=== PATIENT | male | born 1995 | race Two or more races ===

== ENCOUNTER 2023-09-06 16:15 | Inpatient (IN) | payer OTHER ==
[2023-09-06 17:41] VITALS: BMI 22.2
[2023-09-06] MEDS ORDERED: DICYCLOMINE HCL 10 MG CAPSULE PO PRN (19:04)
[2023-09-06] MEDS ORDERED: MAG HYDROX/AL HYDROX/SIMETH 30 ML UNIT-DOSE CUP PO PRN (19:04)
[2023-09-06] MEDS ORDERED: BENZOCAINE/MENTHOL (CHLORASEPTIC ) LOZENGE MM PRN (19:04)
[2023-09-06] MEDS ORDERED: LOPERAMIDE HCL 2 MG CAPSULE PO PRN (19:04)
[2023-09-06] MEDS ORDERED: ACETAMINOPHEN 325 MG TABLET (FP) PO PRN (19:04)
[2023-09-06] MEDS ORDERED: ONDANSETRON *ODT* 4 MG TABLET SL PRN (19:04)
[2023-09-06] MEDS ORDERED: POLYETHYLENE GLYCOL (HEALTHYLAX) 3350 17 GM PACKET PO PRN (19:04)
[2023-09-06] MEDS ORDERED: MAGNESIUM HYDROX 2400MG/30ML ORAL SUSPENSION 30 ML CUP PO PRN (19:04)
[2023-09-06] MEDS ORDERED: IBUPROFEN 600 MG TABLET (FP) PO PRN (19:04)
[2023-09-06] MEDS ORDERED: NICOTINE POLACRILEX 2 MG GUM BUC PRN (19:04)
[2023-09-06] MEDS ORDERED: IBUPROFEN 400 MG TABLET (FP) PO PRN (19:04)
[2023-09-06] MEDS ORDERED: BISMUTH SUBSALICYLATE 524 MG/30 ML PO PRN (19:04)
[2023-09-06] MEDS ORDERED: hydrOXYzine PAMOATE 25 MG CAPSULE (FP) PO PRN (19:04)
[2023-09-06] MEDS ORDERED: NICOTINE POLACRILEX 2 MG LOZENGE BC PRN (19:04)
[2023-09-06] MEDS ORDERED: guaiFENesin 600 MG TABLET.ER (FP) PO PRN (19:04)
[2023-09-06] MEDS ORDERED: BENZONATATE 200 MG CAPSULE PO PRN (19:04)
[2023-09-06] MEDS: THIAMINE 100 MG TABLET PO SCH (22:22)
[2023-09-06] MEDS: MELATONIN 5 MG TABLETS PO SCH (22:22)
[2023-09-07] MEDS: PRENATAL VITAMINS W/ FOLIC ACID TABLET (FP) PO SCH (10:19)
[2023-09-07 13:22] LABS: POTASSIUM 4.4 mmol/L (3.5-5.1)
[2023-09-07 13:27] LABS: HEMATOCRIT 43.5 % (35.4-49); HEMOGLOBIN 14.9 GM/dL (11.7-16.9); MCH 30.8 pg (25.7-33.7); MCHC 34.2 g/dl (32.0-35.9); MEAN CELL VOLUME 89.9 fl (80-96); MEAN PLT VOLUME 8.8 fl (7.5-11.1); PLATELET COUNT 250 10^3/uL (134-434); RBC 4.84 M/mm3 (4.00-5.60); RDW 13.7 % (11.9-15.9); WHITE BLOOD COUNT 5.6 K/mm3 (4.0-10.0)
[2023-09-07 13:31] LABS: CALCIUM 9.5 mg/dL (8.5-10.1)
[2023-09-07 13:34] LABS: BLOOD UREA NITROGEN 9.1 mg/dL (7-18)
[2023-09-07 13:36] LABS: CREATININE 0.9 mg/dL (0.55-1.3)
[2023-09-07 13:41] LABS: BILIRUBIN,TOTAL 0.6 mg/dL (0.2-1)
[2023-09-07 13:42] LABS: TOT PROT 7.6 g/dl (6.4-8.2)
[2023-09-08] MEDS ORDERED: ALBUTEROL SO4 HFA INHALER IH PRN (08:53)
[2023-09-08 21:22] VITALS: RESP 16
[2023-09-08] MEDS: METHOCARBAMOL 500 MG TABLET PO PRN (22:21)
[2023-09-09 09:16] VITALS: BP 108/54; PULSE 62; TEMP 97.9
== END 2023-09-09 13:25 | disposition home or self-care (01) | DRG 775 ==
LOC: YASAS 16:15 → Y6N 19:17
PROVIDERS: ADMIT Allergy & Immunology; ATTEND Surgery
PROC: HZ2ZZZZ Detoxification Services for Substance Abuse Treatment (ICD-10-PCS; principal; 2023-09-06)
DX: F10.20 Alcohol dependence, uncomplicated (principal); F17.290 Nicotine dependence, other tobacco product, uncomplicated; J45.20 Mild intermittent asthma, uncomplicated
CPT/HCPCS: 36415; 80053; 80305; 80307; 82607; 82746; 84439; 84443; 85027; 86780; 93005; 93010